=== PATIENT | female | born 1980 | race Hispanic/Latino ===

== ENCOUNTER 2021-06-06 06:59 | Day surgery (SDC) | payer OTHER ==
[2021-05-31 11:24] LABS: Hematocrit 38.9 % (30.3-42.9); Hemoglobin 13.5 gm/dl (10.1-14.3); Mean Corpuscular HGB Conc 35 % (30-34); Mean Corpuscular Volume 94 fl (79-97); Platelet Count 404 K/mm3 (140-440); Red Blood Count 4.15 M/mm3 (3.65-5.03); Red Cell Distribution Width 13.4 % (13.2-15.2)
--- NOTE | 2021-06-06 07:31 | Anesthesia Consultation ---
Anesthesia Consult and Med Hx Date of service: 06/06/21 - Airway Anesthetic Teeth Evaluation: Good ROM Head & Neck: Adequate Mental/Hyoid Distance: Adequate Mallampati Class: Class III Intubation Access Assessment: Possibly Difficult - Pre-Operative Health Status ASA Pre-Surgery Classification: ASA3 Proposed Anesthetic Plan: General - Pulmonary Hx Smoking: Yes (QUIT 2018) - Central Nervous System Hx Back Pain: Yes (OCC.) Hx Psychiatric Problems: No - Endocrine Hx Hypothyroidism: Yes (TAHMINA DISEASE) - Hematic Hx Anemia: Yes Hx Sickle Cell Disease: No - Other Systems Hx Alcohol Use: No Hx Substance Use: No Hx Cancer: No Hx Obesity: Yes (Morbid obesity BMI 45.2)
--- NOTE | 2021-06-06 07:32 | Anesthesia Day of Surgery ---
Anesthesia Day of Surgery - Day of Surgery Patient Examined: Yes Patient H&P Reviewed: Yes Patient is NPO: Yes
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
[2021-06-06] MEDS ORDERED: SCOPOLAMINE TRANSDERMAL PATCH 72 HR TD NR (08:00)
[2021-06-06] MEDS ORDERED: LACTATED RINGERS 1,000 ML IV SCH (08:00)
[2021-06-06] MEDS ORDERED: MIDAZOLAM 2 MG/2 ML INJ IV NR (08:00)
[2021-06-06] MEDS ORDERED: FAMOTIDINE 20 MG/2 ML INJ IV NR (08:00)
[2021-06-06] MEDS ORDERED: ceFAZolin/Water 2 GM/20 ML 2 GM/20 ML SYRINGE IV NR (08:00)
[2021-06-06] MEDS ORDERED: BUPIVACAINE/PF (0.25%) 2.5 MG/ML 30 ML VIAL INFILTRATI ONE ×3 (08:01→09:57)
[2021-06-06] MEDS ORDERED: propofoL 200 MG/20 ML VIAL IV ONE (08:10)
[2021-06-06] MEDS ORDERED: HYDROmorphone 1 MG/1 ML INJ ONE (08:10)
[2021-06-06] MEDS ORDERED: ROCURONIUM 50 MG/5 ML INJ IV ONE (08:15)
[2021-06-06] MEDS ORDERED: LIDOCAINE MPF (2%) 20 MG/1 ML VIAL 5 ML ONE (08:15)
[2021-06-06] MEDS ORDERED: dexAMETHasone 20 MG/5 ML VIAL ONE (09:40)
[2021-06-06] MEDS ORDERED: ONDANSETRON 4 MG/2 ML INJ ONE (09:41)
[2021-06-06] MEDS ORDERED: HYDROmorphone 1 MG/1 ML INJ IV PRN (09:49)
[2021-06-06] MEDS ORDERED: SODIUM CHLORIDE 0.9% IRR 1,000 ML BOTTLE IR ONE (09:57)
[2021-06-06] MEDS ORDERED: SODIUM CHLORIDE 0.9% IRRIG SOLN 2000 ML IR ONE (09:57)
[2021-06-06] MEDS ORDERED: NEOMY 3.5 MG/BACIT 400 UNITS/POLY B 5000 UNITS OINT 15 GM TP ONE ×2 (10:02→10:03)
[2021-06-06] MEDS ORDERED: GLYCOPYRROLATE 0.4 MG/2 ML INJ ONE (10:23)
[2021-06-06] MEDS ORDERED: NEOSTIGMINE 10MG/10 ML INJ MDV ONE (10:23)
[2021-06-06] MEDS ORDERED: KETOROLAC 30 MG/1 ML INJ ONE (10:23)
[2021-06-06] MEDS ORDERED: ONDANSETRON 4 MG/2 ML INJ IV PRN (10:30)
[2021-06-06] MEDS: HYDROmorphone 1 MG/1 ML INJ IV PRN ×2 (10:50→11:00)
--- NOTE | 2021-06-06 11:02 | Operative Report ---
Operative Report Operative Report: Preoperative diagnosis: Dysfunctional uterine bleeding , undesired fertility, presence of IUD Postoperative diagnosis: Same Procedure: 1. Bilateral laparoscopic salpingectomy 2. NovaSure endometrial ablation 3. Removal of IUD Surgeon: More Lezama Anesthesia: General EBL: Minimal IV fluids: 1000 mL Urine output: 150 mL Findings: Normal uterus tubes and ovaries, thick endometrial lining Specimens: Portion of right and left fallopian tube, IUD Complications: None The patient was properly identified as herself. She was then taken to the OR with IV running and in place. She was given general anesthesia without difficulty. She was placed in a dorsal lithotomy position. She was then prepped and draped in normal sterile fashion. Attention was turned to the patient's vagina. Her bladder was drained of clear urine with a red rubber catheter. The speculum was then placed the patient's vagina. The cervix was visualized and grasped with tenaculum. The acorn cannula was then inserted. The surgeon's gloves were changed and attention turned to the patient's abdomen. A small incision was made in the patient's umbilicus incision a 5 mm trocar was placed. The laparoscope confirmed intra-abdominal placement. The abdomen was insufflated with CO2 gas to approximately 25 mmHg. Both fallopian tubes were identified. With direct visualization a second trocar was placed through an incision in the left lower quadrant. Both tubes were found and followed out to the fimbriated ends. Each tube was cauterized at the portion nearest the cornua, then cauterized across the broad ligament until the tube was completely detached. There was excellent hemostasis at the end of this portion of the procedure. Each tube was handed off for pathology. At this point the abdomen was deflated. All instruments were then removed from the abdomen. The incisions were then closed with 4-0 Monocryl. The incisions were also injected with quarter percent Marcaine. Attention was then turned to the patient's vagina. The manipulator was removed, and a bivalve speculum was placed into the vaginal cavity. The ring forcep was used to remove the IUD that was in place. The uterus was then gently sounded to approximately 8 cm in length. It was then gently dilated to 6 mm so that the hysteroscope could be introduced. The hysteroscope revealed shaggy endometrium and both cornua were visualized. The scope was removed and the NovaSure ablation device was inserted. The ablation was performed with the following settings length 5 cm, width 4.1 cm, power 121 W. With a total ablation time of 1 minute 16 seconds. Once completed, all instruments removed from the patient's vagina. The patient tolerated the procedure well she was then awakened and taken recovery in stable condition. Sponge needle and instrument counts were correct 2.
[2021-06-06 11:41] VITALS: BP 111/65
--- NOTE | 2021-06-06 16:58 | Post Anesthesia Evaluation ---
- Post Anesthesia Evaluation Patient Participated: Yes Airway Patent: Yes Stable Respiratory Function: Yes Nausea/Vomiting: No Temp > 96.8F: Yes Pain Manageable: Yes Adequeate Hydration: Yes Anesthesia Complications: No Block Receding Appropriately: Not Applicable Patient on Ventilator: No
== END 2021-06-06 11:50 | disposition home or self-care (01) ==
LOC: OR 06:59
PROVIDERS: ATTEND Obstetrics & Gynecology
DX: Z30.2 Encounter for sterilization (principal); N93.8 Other specified abnormal uterine and vaginal bleeding; Z30.432 Encounter for removal of intrauterine contraceptive device; Z20.822 Contact with and (suspected) exposure to COVID-19; E66.9 Obesity, unspecified; E03.9 Hypothyroidism, unspecified; Z98.890 Other specified postprocedural states; Z79.899 Other long term (current) drug therapy; Z87.891 Personal history of nicotine dependence; Z90.49 Acquired absence of other specified parts of digestive tract; Z87.442 Personal history of urinary calculi; Z68.42 Body mass index [BMI] 45.0-49.9, adult
CPT/HCPCS: 36415; 58301; 58563; 58670; 84703; 85027; 88300; 88302; 88342; A4217; A6250; J0690; J1100; J1170; J1885; J2250; J2405; J2704; J2710; J7120; U0003